=== PATIENT | male | born 1940 | race Caucasian/White ===

== ENCOUNTER 2017-10-06 10:45 | Day surgery (SDC) | payer OTHER ==
[2017-10-06] MEDS ORDERED: NS 0.9% VIAL 0 ML ONE (11:30)
[2017-10-06] MEDS ORDERED: EPINEPHRINE/PF 1 MG/ML AMP ONE (11:30)
[2017-10-06] MEDS ORDERED: BALANCED SALT IRRIG PLAIN 500 ML BTL IRR ONE (11:30)
[2017-10-06] MEDS ORDERED: MOXIFLOXACIN HCL 10 DROPS/ML **OR USE OPTH ONE (11:31)
[2017-10-06] MEDS ORDERED: DUOVISC 1 KIT OPTH ONE (11:31)
[2017-10-06] MEDS ORDERED: TRYPAN BLUE 0.5 ML SYR OPTH ONE (11:31)
[2017-10-06] MEDS ORDERED: NA CHLORIDE 0.9% 500 ML ONE (11:32)
[2017-10-06] MEDS ORDERED: TETRACAINE HCL 0.5% 2ML OPTH ONE (11:33)
[2017-10-06] MEDS ORDERED: LIDOCAINE 2% MPF 5 ML VIAL ONE ×2 (11:33→12:04)
[2017-10-06] MEDS ORDERED: PROPOFOL 200 MG/20 ML VIAL IV ONE (12:04)
[2017-10-06] MEDS: PHENYLEPHRINE 10% OPTH 5ML ONE ×3 (12:05→12:15)
[2017-10-06] MEDS: CYCLOPENTOLATE 1% OPTH 2 ML ONE ×3 (12:05→12:15)
[2017-10-06] MEDS ORDERED: BUPIVACAINE 0.25% PF 30 ML VIAL ONE (12:29)
== END 2017-10-06 13:35 | disposition home or self-care (01) ==
LOC: OR 10:45
PROVIDERS: ATTEND Ophthalmology Retina Specialist
DX: H25.12 Age-related nuclear cataract, left eye (principal); H25.042 Posterior subcapsular polar age-related cataract, left eye; Z53.9 Procedure and treatment not carried out, unspecified reason; H04.123 Dry eye syndrome of bilateral lacrimal glands; I48.91 Unspecified atrial fibrillation; I10 Essential (primary) hypertension
CPT/HCPCS: J0171

== ENCOUNTER 2017-11-03 11:33 | Day surgery (SDC) | payer OTHER ==
[2017-11-03] MEDS ORDERED: BALANCED SALT IRRIG PLAIN 500 ML BTL IRR ONE (11:45)
[2017-11-03] MEDS ORDERED: NS 0.9% VIAL 10 ML ONE (11:45)
[2017-11-03] MEDS ORDERED: EPINEPHRINE/PF 1 MG/ML AMP ONE (11:45)
[2017-11-03] MEDS ORDERED: DUOVISC 1 KIT OPTH ONE (11:46)
[2017-11-03] MEDS ORDERED: TRYPAN BLUE 0.5 ML SYR OPTH ONE (11:46)
[2017-11-03] MEDS ORDERED: NA CHLORIDE 0.9% 500 ML ONE (11:48)
[2017-11-03] MEDS ORDERED: LIDOCAINE 2% MPF 5 ML VIAL ONE (11:49)
[2017-11-03] MEDS ORDERED: CYCLOPENTOLATE 1% OPTH 2 ML ONE (11:49)
[2017-11-03] MEDS ORDERED: BUPIVACAINE 0.25% PF 10 ML VIAL ONE (11:49)
[2017-11-03] MEDS ORDERED: PHENYLEPHRINE 10% OPTH 5ML ONE (11:49)
[2017-11-03] MEDS: TETRACAINE HCL 0.5% 2ML OPTH ONE ×2 (12:21→13:21)
[2017-11-03] MEDS ORDERED: LIDOCAINE 1% MPF 2 ML AMPULE ONE ×2 (12:53→13:48)
[2017-11-03] MEDS ORDERED: PROPOFOL 200 MG/20 ML VIAL IV ONE (12:53)
[2017-11-03] MEDS ORDERED: METOPROLOL TARTRATE 5 MG/5 ML INJ IV ONE (13:07)
[2017-11-03] MEDS: MOXIFLOXACIN HCL 10 DROPS/ML **OR USE OPTH ONE ×2 (13:52→14:11)
--- NOTE | 2017-11-03 14:19 | P.BOP ---
Preoperative diagnosis: Nuclear sclerotic and posterior subcapsular cataract OS Postoperative diagnosis: Same Primary procedure: Phacoemulsification with IOL OS Estimated blood loss: None Anesthesia: Local (Subtenon's infusion with anesthesia for cataract surgery) Complications: None Implants: ZCB00 +21.0 Transferred to: Other (Day surgery) Condition: Good
--- NOTE | 2017-11-04 01:29 | OP ---
Date of Procedure: 11/03/2017 Surgeon: Chelita Gurrola MD Anesthesiologist: 1. Palomo Santana CRNA. 2. Palomo Ayers CRNA. 3. Micah Shaver M.D. Preoperative Diagnosis: Nuclear sclerotic cataract and posterior subcapsular cataract, left eye. Operation Performed: Phacoemulsification with intraocular lens implant, left eye. Anesthesia: Per cataract surgery. Complications: None. Description Of Procedure: In day surgery, the patient was prepped with Betadine and draped. A conju nctival incision was made in the inferior nasal quadrant with Derick scissors. A sub-Tenon block c onsisting of a 1:1 mixture of 2% Xylocaine and 0.25% bupivacaine was placed through the conjunctival incision with a blunt cannula. A Honan balloon was placed over the eye and the patient was transferr ed to the operating room. In the operating room the patient was prepped and draped in the usual sterile fashion for ophthalmic surgery. A lid speculum was placed in the left eye. Two paracentesis sites were made superiorly and inferiorly in the limbal cornea. Viscoat was placed in the anterior chamber and a crescent blade wa s used to make a corneal groove and tunnel, and a keratome was used to enter the anterior chamber. P rovisc was placed in the anterior chamber and a 360 degree capsulotomy was performed with a cystitome . The lens was hydrodissected with BSS and rotated freely. The lens was removed with a stop and cho p technique. 54.70 phaco CDE was used to remove the lens. Residual cortex was removed with the irri gation and aspiration. Provisc was placed in the capsular bag. A ZCB00 +21.[address] d in the capsular bag without complications. Irrigation and aspiration was used to remove residual v iscoelastic. The paracentesis sites were hydrated with BSS. The wound and paracentesis sites were i nspected and found to be watertight. Vigamox 0.07 cc was placed intracamerally at the end of the pro cedure. The eye was irrigated with balanced salt solution. The eye was patched with a soft cotton p atch and Singh metal shield. The patient was returned to day surgery in good condition. Comments: Extra Viscoat was used and posterior subcapsular plaque remained at the end of the procedu re. Discharge Instructions: Mr. Jean is discharged to home in good condition and is to follow up with Justice Gurrola in the morning. LEANDRA/PEARL Voice ID: [id number] Report ID: [id number]
== END 2017-11-03 14:45 | disposition home or self-care (01) ==
LOC: OR 11:33
PROVIDERS: ATTEND Ophthalmology Retina Specialist
PROC: 08RK3JZ Replacement of Left Lens with Synthetic Substitute, Percutaneous Approach (ICD-10-PCS; principal; 2017-11-03 11:30)
DX: H25.042 Posterior subcapsular polar age-related cataract, left eye (principal); H25.12 Age-related nuclear cataract, left eye; Z79.82 Long term (current) use of aspirin; F17.210 Nicotine dependence, cigarettes, uncomplicated
CPT/HCPCS: 00142; 66984; J0171; J2001 ×2

== ENCOUNTER 2017-12-29 08:35 | Day surgery (SDC) | payer OTHER ==
[2017-12-29] MEDS ORDERED: NS 0.9% VIAL 10 ML ONE (09:01)
[2017-12-29] MEDS ORDERED: EPINEPHRINE/PF 1 MG/ML AMP ONE (09:01)
[2017-12-29] MEDS ORDERED: MOXIFLOXACIN HCL 10 DROPS/ML **OR USE OPTH ONE (09:02)
[2017-12-29] MEDS ORDERED: DUOVISC 1 KIT OPTH ONE (09:02)
[2017-12-29] MEDS ORDERED: BALANCED SALT IRRIG PLAIN 500 ML BTL IRR ONE (09:02)
[2017-12-29] MEDS ORDERED: CYCLOPENTOLATE 1% OPTH 2 ML ONE (09:27)
[2017-12-29] MEDS ORDERED: PHENYLEPHRINE 10% OPTH 5ML ONE (09:27)
[2017-12-29] MEDS ORDERED: NA CHLORIDE 0.9% 500 ML ONE (09:27)
[2017-12-29] MEDS ORDERED: BUPIVACAINE 0.25% PF 10 ML VIAL ONE (09:27)
[2017-12-29] MEDS ORDERED: PHENYLEPHRINE 10% OPTH 5ML OPTH ONE ×2 (09:45→09:50)
[2017-12-29] MEDS ORDERED: CYCLOPENTOLATE 1% OPTH 2 ML OPTH ONE ×2 (09:45→09:50)
[2017-12-29] MEDS: LIDOCAINE 2% MPF 5 ML VIAL ONE ×3 (10:07→10:23)
[2017-12-29] MEDS: TETRACAINE HCL 0.5% 2ML OPTH ONE ×2 (10:07→10:22)
[2017-12-29] MEDS ORDERED: LIDOCAINE 1% MPF 2 ML AMPULE ONE (10:22)
[2017-12-29] MEDS ORDERED: PROPOFOL 200 MG/20 ML VIAL IV ONE (10:22)
[2017-12-29] MEDS ORDERED: TRYPAN BLUE 0.5 ML SYR OPTH ONE (10:32)
--- NOTE | 2017-12-29 11:23 | P.BOP ---
Preoperative diagnosis: Nuclear sclerotic cataract OD Postoperative diagnosis: Same Primary procedure: Phacoemulsification with IOL OD Estimated blood loss: None Anesthesia: Local (Subtenon's infusion with anesthesia for cataract surgery) Complications: None Implants: ZCB00 +20.5 Transferred to: Other (Day surgery) Condition: Good
--- NOTE | 2017-12-29 22:00 | OP ---
Surgeon: Chelita Gurrola MD Anesthesiologist: Christie Wan CRNA and Duke Burt MD. Preoperative Diagnosis: Nuclear sclerotic cataract right eye. Operation Performed: Phacoemulsification with intraocular lens implant, right eye. Anesthesia: Per cataract surgery. Complications: None. Description Of Procedure: In day surgery, the patient was prepped with Betadine and draped. A conju nctival incision was made in the inferior nasal quadrant with Derick scissors. A sub-Tenon block c onsisting of a 1:1 mixture of 2% Xylocaine and 0.25% bupivacaine was placed through the conjunctival incision with a blunt cannula. A Honan balloon was placed over the eye and the patient was transferr ed to the operating room. In the operating room the patient was prepped and draped in the usual sterile fashion for ophthalmic surgery. A lid speculum was placed in the right eye. Two paracentesis sites were made superiorly an d inferiorly in the limbal cornea. Viscoat was placed in the anterior chamber and a crescent blade w as used to make a corneal groove and tunnel, and a keratome was used to enter the anterior chamber. Provisc was placed in the anterior chamber and a 360 degree capsulotomy was performed with a cystitom e. The lens was hydrodissected with BSS and rotated freely. The lens was removed with a stop and ch op technique. A 44.81 phaco CDE was used to remove the lens. Residual cortex was removed with the i rrigation and aspiration. Provisc was placed in the capsular bag. A ZCB00 +20.5 lens was placed in the capsular bag without complications. Irrigation and aspiration were used to remove residual visco elastic. The paracentesis sites were hydrated with BSS. The wound and paracentesis sites were inspe cted and found to be watertight. Vigamox 0.07 cc was placed intracamerally at the end of the procedu re. The eye was irrigated with balanced salt solution. The eye was patched with a soft cotton patch and Singh metal shield. The patient was returned to day surgery in good condition. Comments: Extra Viscoat was used. Discharge Instructions: Mr. Jean is discharged to home in good condition and is to follow up with Justice Gurrola in the morning. LEANDRA/PEARL Voice ID: [id number] Report ID: [id number]
== END 2017-12-29 11:50 | disposition home or self-care (01) ==
LOC: OR 08:35
PROVIDERS: ATTEND Ophthalmology Retina Specialist
PROC: 08RJ3JZ Replacement of Right Lens with Synthetic Substitute, Percutaneous Approach (ICD-10-PCS; principal; 2017-12-29 10:15)
DX: H25.11 Age-related nuclear cataract, right eye (principal); H04.123 Dry eye syndrome of bilateral lacrimal glands; I10 Essential (primary) hypertension; F17.200 Nicotine dependence, unspecified, uncomplicated
CPT/HCPCS: 66984; J0171; J2001